=== PATIENT | female | born 1985 | race African-American/Black ===

== ENCOUNTER 2016-12-05 04:02 | Emergency (ER) | payer BC, MEDICAID ==
[~2016-12-05] VITALS: Ht 167.6 cm; Wt 72.6 kg
--- NOTE | 2016-12-05 06:00 | NUR ---
TO BED 8 A 31 YO FEMALE PT BIB SELF FROM HOME, PT STATES HER BRAIN HURTS AND HAVING ABD PAIN AND SAID, "SOMETHING IS EATING MY FACE" X3 WEEKS. PATIENT IS ALERT, RESPONSIVE, VSS, NAD NOTED. BREATHING EVEN AND UNLABORED. NONDIAPHORETIC. COMFORT MEASURES RENDERED. AWAITING FOR ER MD HENSON.
--- NOTE | 2016-12-05 06:25 | NUR ---
started a saline lock on the lac g18, blood drawn and sent to lab. Addendum: 12/05/16 at 0635 by BEVERLEY rac g18
[2016-12-05] MEDS ORDERED: IV NS 0.9% 1,000 ML BAG IV ONE (06:30)
[2016-12-05] MEDS ORDERED: ONDANSETRON HCL/PF 4 MG/2 ML VIAL IVP ONE (06:30)
[2016-12-05] MEDS ORDERED: ONDANSETRON HCL/PF 4 MG/2 ML VIAL ONE (06:31)
--- NOTE | 2016-12-05 06:35 | NUR ---
medicated patient as ordered by Dr Irvin.
[2016-12-05 06:41] LABS: BASOPHILS % (AUTO) 0.3 % (0.0-2.0); EOSINOPHILS # (AUTO) 0.4 /CMM (0.0-0.7); EOSINOPHILS % (AUTO) 2.8 % (0.0-6.0); HEMATOCRIT 42 % (33-45); HEMOGLOBIN 13.6 g/dL (11.5-14.8); LYMPHOCYTES # (AUTO) 4.6 /CMM (0.8-4.8); LYMPHOCYTES % (AUTO) 33.8 % (20.0-44.0); MEAN CORPUSCULAR HEMOGLOBIN 29 PG (26.0-33.0); MEAN CORPUSCULAR HGB CONC 32 g/dl (31.0-36.0); MEAN CORPUSCULAR VOLUME 88 fL (82-100); MONOCYTES # (AUTO) 0.6 /CMM (0.1-1.30); MONOCYTES % (AUTO) 4.6 % (2.0-12.0); NEUTROPHILS # (AUTO) 7.9 /CMM (1.8-8.9); NEUTROPHILS % (AUTO) 58.5 % (43.0-81.0); PLATELET COUNT (AUTO) 253 /CMM (150-450); RDW COEFFICIENT OF VARIATION 12.6 (11.5-15.0); RED BLOOD CELL COUNT(AUTO) 4.74 MIL/uL (4.0-5.2); WHITE BLOOD COUNT (AUTO) 13.5 K/uL (4.3-11.0)
[2016-12-05 06:49] LABS: CALCIUM, SERUM 8.9 mg/dL (8.5-10.1); CREATININE 0.7 mg/dL (0.6-1.3); POTASSIUM 3.6 mmol/L (3.5-5.1)
[2016-12-05 06:55] LABS: BILIRUBIN,DIRECT 0.1 mg/dL (0.0-0.2); BILIRUBIN,TOTAL 0.4 mg/dL (0.2-1.0); TOTAL PROTEIN, SERUM 7.6 g/dL (6.4-8.2)
[2016-12-05 07:13] LABS: APPEARANCE,URINE SL CLOUDY (CLEAR); BILIRUBIN,URINE NEGATIVE (NEGATIVE); BLOOD, URINE NEGATIVE Ery/uL (NEGATIVE); COLOR,URINE YELLOW (YELLOW); KETONES,URINE NEGATIVE (NEGATIVE); LEUKOCYTE ESTERASE ,URINE NEGATIVE (NEGATIVE); NITRITE, URINE NEGATIVE (NEGATIVE); PH,URINE 5.5 (5.0-8.0); PROTEIN,URINE NEGATIVE (NEGATIVE); UGLUCOSE NEGATIVE (NEGATIVE); UROBILINOGEN,URINE 0.2 EU/dL (0.2)
--- NOTE | 2016-12-05 07:41 | NUR ---
IV removed. Catheter intact and site benign. Pressure and 4x4 applied to site. No bleeding noted.PT. VERBALIZED UNDERSTANDING OF AFTERCARE INSTRUCTIONS.Patient discharged to home in stable condition. Written and verbal after care instructions given. Patient verbalizes understanding of instruction.
[2016-12-05 07:45] VITALS: BP 134/77
== END 2016-12-05 07:49 | disposition home or self-care (01) ==
LOC: ER 04:07
DX: R10.84 Generalized abdominal pain (principal); R51 Headache; F17.200 Nicotine dependence, unspecified, uncomplicated
CPT/HCPCS: 36415; 80048-TC; 80076-TC; 81000-TC; 83690-TC; 84703-TC; 85025-TC; A4606; J2405; J7030; Z7610

== ENCOUNTER 2017-03-23 21:42 | Emergency (ER) | payer BC ==
[~2017-03-23] VITALS: Ht 170.2 cm; Wt 72.6 kg
--- NOTE | 2017-03-23 23:39 | NUR ---
PT BIBSELF AMBULATORY TO ER BED 8 C/O "ABD PAIN X1 MONTH; SAW MD YESTERDAY AND ON FLAGYL" PT AOX3 RR EVEN AND UNLABORED. NO SOB NOTED. NAD NOTED. NO NVD AT THIS TIME. PT GOWNED AND PLACED ON MONITOR WAITING FOR MD HENSON.
--- NOTE | 2017-03-23 23:44 | NUR ---
LAB AT BEDSIDE FOR BLOOD DRAW
[2017-03-23 23:47] LABS: BASOPHILS # (AUTO) 0.3 /CMM (0.0-0.2); BASOPHILS % (AUTO) 2.6 % (0.0-2.0); EOSINOPHILS # (AUTO) 0.2 /CMM (0.0-0.7); EOSINOPHILS % (AUTO) 1.2 % (0.0-6.0); HEMATOCRIT 41 % (33-45); HEMOGLOBIN 14.3 g/dL (11.5-14.8); LYMPHOCYTES # (AUTO) 3.1 /CMM (0.8-4.8); LYMPHOCYTES % (AUTO) 23.8 % (20.0-44.0); MEAN CORPUSCULAR HEMOGLOBIN 30 PG (26.0-33.0); MEAN CORPUSCULAR HGB CONC 35 g/dl (31.0-36.0); MEAN CORPUSCULAR VOLUME 86 fL (82-100); MONOCYTES # (AUTO) 0.5 /CMM (0.1-1.30); MONOCYTES % (AUTO) 3.5 % (2.0-12.0); NEUTROPHILS # (AUTO) 8.8 /CMM (1.8-8.9); NEUTROPHILS % (AUTO) 68.9 % (43.0-81.0); PLATELET COUNT (AUTO) 248 /CMM (150-450); RDW COEFFICIENT OF VARIATION 11.9 (11.5-15.0); RED BLOOD CELL COUNT(AUTO) 4.81 MIL/uL (4.0-5.2); WHITE BLOOD COUNT (AUTO) 12.9 K/uL (4.3-11.0)
--- NOTE | 2017-03-24 00:04 | NUR ---
URINE COLLECTED. CALLED LAB FOR WELCOME CENTER AGENT.
[2017-03-24 00:15] LABS: CALCIUM, SERUM 9.1 mg/dL (8.5-10.1); CREATININE 0.8 mg/dL (0.6-1.3); POTASSIUM 3.8 mmol/L (3.5-5.1)
[2017-03-24 00:21] LABS: BILIRUBIN,DIRECT 0.1 mg/dL (0.0-0.2); BILIRUBIN,TOTAL 0.4 mg/dL (0.2-1.0); TOTAL PROTEIN, SERUM 7.7 g/dL (6.4-8.2)
[2017-03-24 00:25] LABS: APPEARANCE,URINE SL CLOUDY (CLEAR); BILIRUBIN,URINE NEGATIVE (NEGATIVE); BLOOD, URINE 3+ Ery/uL (NEGATIVE); COLOR,URINE YELLOW (YELLOW); KETONES,URINE NEGATIVE (NEGATIVE); LEUKOCYTE ESTERASE ,URINE NEGATIVE (NEGATIVE); NITRITE, URINE NEGATIVE (NEGATIVE); PH,URINE 5.5 (5.0-8.0); PROTEIN,URINE TRACE mg/dl (NEGATIVE); UGLUCOSE NEGATIVE (NEGATIVE); UROBILINOGEN,URINE 0.2 EU/dL (0.2)
[2017-03-24 00:30] LABS: RBC,URINE 81-100 /HPF (0-2)
[2017-03-24 00:31] LABS: BACTERIA,URINE Few /HPF (None Seen); SQUAMOUS EPITHELIAL CELL,UR Moderate /HPF (None Seen); WBC,URINE 0-2 /HPF (0-3)
--- NOTE | 2017-03-24 00:33 | NUR ---
Art, CLEANER OPERATOR at bedside for psych eval.
--- NOTE | 2017-03-24 00:48 | NUR ---
Dr. Martin at bedside for update on pt status w/ discharge instructions. pt ambulatory w/ steady gait, resp even & unlabored, nad noted. Patient discharged to home in stable condition. Written and verbal after care instructions given. Patient verbalizes understanding of instruction.
[2017-03-24 00:53] VITALS: BP 118/76
== END 2017-03-24 00:52 | disposition home or self-care (01) ==
LOC: ER 21:47
DX: R10.9 Unspecified abdominal pain (principal)
CPT/HCPCS: 36415; 80048-TC; 80076-TC; 81000-TC; 83690-TC; 84703-TC; 85025-TC; A4606; Z7610

== ENCOUNTER 2017-09-30 20:52 | Emergency (ER) | payer BC ==
[~2017-09-30] VITALS: Ht 167.6 cm; Wt 68.0 kg
[2017-09-30 21:10] VITALS: BP 100/64
[2017-09-30 21:24] LABS: APPEARANCE,URINE Clear (CLEAR); BILIRUBIN,URINE Negative (NEGATIVE); BLOOD, URINE Negative Ery/uL (NEGATIVE); COLOR,URINE Yellow (YELLOW); KETONES,URINE Negative (NEGATIVE); LEUKOCYTE ESTERASE ,URINE Negative (NEGATIVE); NITRITE, URINE Negative (NEGATIVE); PH,URINE 5.5 (5.0-8.0); PROTEIN,URINE Negative (NEGATIVE); UGLUCOSE Negative (NEGATIVE); UROBILINOGEN,URINE 0.2 EU/dL (0.2)
--- NOTE | 2017-09-30 21:33 | NUR ---
PATIENT AMBULATED TO ER BED WITH STEADY GAIT
== END 2017-09-30 22:45 | disposition home or self-care (01) ==
LOC: ER 20:53
DX: O26.899 Other specified pregnancy related conditions, unspecified trimester (principal); R30.0 Dysuria; F10.10 Alcohol abuse, uncomplicated; F17.200 Nicotine dependence, unspecified, uncomplicated; Y90.9 Presence of alcohol in blood, level not specified; Z3A.00 Weeks of gestation of pregnancy not specified
CPT/HCPCS: 81001; 84703; 99284; A4606; Z7610; 81000-TC

== ENCOUNTER 2017-10-05 18:00 | Emergency (ER) | payer BC ==
[~2017-10-05] VITALS: Ht 167.6 cm; Wt 68.0 kg
--- NOTE | 2017-10-05 18:00 | NUR ---
PT BIBRA FROM HOME TO ER BED . C/O DIFFUSE ABDOMINAL PAIN W/ NAUSEA X 3 DAYS. PT STATES TOOK A TEST THIS WEEK AND THINK SHE IS HAVING A MISCARRIAGE. PT DENIES BLEEDING AND DISCHARGE. GOWNED AND PLACED ON MONITOR. AWAITING MD HENSON.
--- NOTE | 2017-10-05 18:23 | NUR ---
DR MUJICA AT BEDSIDE FOR EVAL.
[2017-10-05] MEDS ORDERED: IV NS 0.9% 1,000 ML BAG IV ONE (18:30)
[2017-10-05 18:56] LABS: BASOPHILS # (AUTO) 0.5 /CMM (0.0-0.2); BASOPHILS % (AUTO) 3.5 % (0.0-2.0); EOSINOPHILS % (AUTO) 1.8 % (0.0-6.0); HEMATOCRIT 37 % (33-45); HEMOGLOBIN 13.3 g/dL (11.5-14.8); LYMPHOCYTES # (AUTO) 2.5 /CMM (0.8-4.8); LYMPHOCYTES % (AUTO) 19.2 % (20.0-44.0); MEAN CORPUSCULAR HEMOGLOBIN 31 PG (26.0-33.0); MEAN CORPUSCULAR HGB CONC 36 g/dl (31.0-36.0); MEAN CORPUSCULAR VOLUME 87 fL (82-100); MONOCYTES # (AUTO) 0.6 /CMM (0.1-1.30); MONOCYTES % (AUTO) 4.8 % (2.0-12.0); NEUTROPHILS # (AUTO) 9.1 /CMM (1.8-8.9); NEUTROPHILS % (AUTO) 70.7 % (43.0-81.0); PLATELET COUNT (AUTO) 217 /CMM (150-450); RED BLOOD CELL COUNT(AUTO) 4.31 MIL/uL (4.0-5.2); WHITE BLOOD COUNT (AUTO) 12.9 K/uL (4.3-11.0)
[2017-10-05 19:29] LABS: APPEARANCE,URINE Clear (CLEAR); BILIRUBIN,URINE SMALL (NEGATIVE); BLOOD, URINE Negative Ery/uL (NEGATIVE); COLOR,URINE Yellow (YELLOW); KETONES,URINE Negative (NEGATIVE); LEUKOCYTE ESTERASE ,URINE Trace (NEGATIVE); NITRITE, URINE Negative (NEGATIVE); PH,URINE 5.5 (5.0-8.0); PROTEIN,URINE Negative (NEGATIVE); UGLUCOSE Negative (NEGATIVE); UROBILINOGEN,URINE 0.2 EU/dL (0.2)
[2017-10-05 19:45] LABS: BACTERIA,URINE Rare /HPF (None Seen); MUCUS,URINE Few /LPF (None Seen); RBC,URINE 0-2 /HPF (0-2); SQUAMOUS EPITHELIAL CELL,UR Many /HPF (None Seen); URINE AMORPHOUS URATE Few /HPF (None Seen); WBC,URINE 2-3/HPF /HPF (0-3)
[2017-10-05 19:47] LABS: CREATININE 0.7 mg/dL (0.6-1.3); POTASSIUM 3.3 mmol/L (3.5-5.1)
[2017-10-05] MEDS ORDERED: POTASSIUM CHLORIDE 20 MEQ TAB.PRT.SR PO ONE ×2 (20:30→20:40)
--- NOTE | 2017-10-05 20:52 | NUR ---
Patient discharged to home in stable condition. Written and verbal after care instructions given. Patient verbalizes understanding of instruction.IV removed. Catheter intact and site benign. Pressure and 4x4 applied to site. No bleeding noted.
[2017-10-05 20:53] VITALS: BP 102/62
== END 2017-10-05 20:59 | disposition home or self-care (01) ==
LOC: ER 18:00
DX: O99.281 Endocrine, nutritional and metabolic diseases complicating pregnancy, first trimester (principal); F10.10 Alcohol abuse, uncomplicated; F17.200 Nicotine dependence, unspecified, uncomplicated; E87.6 Hypokalemia; E86.0 Dehydration; Y90.9 Presence of alcohol in blood, level not specified; Z3A.01 Less than 8 weeks gestation of pregnancy
CPT/HCPCS: 36415; 76856-TC; 80048-TC; 81000-TC; 84702-TC; 85025-TC; 86850-TC; A4606; J7030; Z7610

== ENCOUNTER 2017-12-30 17:45 | Emergency (ER) ==
[~2017-12-30] VITALS: Ht 167.6 cm; Wt 72.6 kg
--- NOTE | 2017-12-30 18:30 | NUR ---
PT PRESENTS TO ER C/O "LIVER PAIN" AND ABD DISTENSION WORSEINNG OVER LAST FEW MONTHS. PT DOES NOT MAKE SENSE BUT IS COOPERATIVE WITH STAFF INSTRUCTION. RESP EVEN UNLABORED. SKIN WARM DRY. NAD NOTED. IN ER BED 12.
--- NOTE | 2017-12-30 19:26 | NUR ---
REPORT RECEIVED FROM CORI SWEENEY FOR DESMOND.
[2017-12-30 19:37] LABS: BASOPHILS # (AUTO) 0.3 /CMM (0.0-0.2); BASOPHILS % (AUTO) 2.2 % (0.0-2.0); EOSINOPHILS % (AUTO) 0.8 % (0.0-6.0); HEMATOCRIT 44 % (33-45); HEMOGLOBIN 14.5 g/dL (11.5-14.8); LYMPHOCYTES # (AUTO) 2.4 /CMM (0.8-4.8); LYMPHOCYTES % (AUTO) 19.1 % (20.0-44.0); MEAN CORPUSCULAR HGB CONC 33 g/dl (31.0-36.0); MEAN CORPUSCULAR VOLUME 88 fL (82-100); MONOCYTES # (AUTO) 0.5 /CMM (0.1-1.30); MONOCYTES % (AUTO) 4.3 % (2.0-12.0); NEUTROPHILS # (AUTO) 9.3 /CMM (1.8-8.9); NEUTROPHILS % (AUTO) 73.6 % (43.0-81.0); PLATELET COUNT (AUTO) 306 /CMM (150-450); WHITE BLOOD COUNT (AUTO) 12.6 K/uL (4.3-11.0)
[2017-12-30 19:52] LABS: CALCIUM, SERUM 9.5 mg/dL (8.5-10.1); CREATININE 0.7 mg/dL (0.6-1.3); POTASSIUM 3.7 mmol/L (3.5-5.1)
[2017-12-30 19:58] LABS: ALBUMIN 4.1 g/dL (3.4-5.0); BILIRUBIN,DIRECT 0.2 mg/dL (0.0-0.2); BILIRUBIN,TOTAL 0.8 mg/dL (0.2-1.0); TOTAL PROTEIN, SERUM 8.1 g/dL (6.4-8.2)
--- NOTE | 2017-12-30 20:49 | NUR ---
Patient discharged to home in stable condition. Written and verbal after care instructions given. Patient verbalizes understanding of instruction. Patient ambulatory with a steady gait.
[2017-12-30 20:50] VITALS: BP 137/86
== END 2017-12-30 20:50 | disposition home or self-care (01) ==
LOC: ER 17:50
DX: R10.84 Generalized abdominal pain (principal); F17.200 Nicotine dependence, unspecified, uncomplicated
CPT/HCPCS: 36415; 80048-TC; 80076-TC; 83690-TC; 84702-TC; 85025-TC; A4606; Z7610

== ENCOUNTER 2018-07-13 11:09 | Emergency (ER) | payer BC ==
[~2018-07-13] VITALS: Ht 162.6 cm; Wt 65.8 kg
[2018-07-13 11:26] VITALS: BP 110/72
--- NOTE | 2018-07-13 11:46 | NUR ---
URINE SPECIMEN COLLECTED AND SENT TO LAB.
[2018-07-13 11:52] LABS: APPEARANCE,URINE Clear (CLEAR); BILIRUBIN,URINE Negative (NEGATIVE); BLOOD, URINE Moderate Ery/uL (NEGATIVE); COLOR,URINE Yellow (YELLOW); KETONES,URINE Negative (NEGATIVE); LEUKOCYTE ESTERASE ,URINE Negative (NEGATIVE); NITRITE, URINE Negative (NEGATIVE); PH,URINE 6.5 (5.0-8.0); PROTEIN,URINE Negative (NEGATIVE); UGLUCOSE Negative (NEGATIVE); UROBILINOGEN,URINE 0.2 EU/dL (0.2)
[2018-07-13 12:02] LABS: WBC,URINE 0-2 /HPF (0-3)
[2018-07-13 12:03] LABS: BACTERIA,URINE None seen /HPF (None Seen); SQUAMOUS EPITHELIAL CELL,UR Few /HPF (None Seen)
--- NOTE | 2018-07-13 12:28 | NUR ---
ER PHLEB AT BEDSIDE FOR BLOOD DRAW.
[2018-07-13 12:36] LABS: BASOPHILS # (AUTO) 0.1 /CMM (0.0-0.2); BASOPHILS % (AUTO) 0.8 % (0.0-2.0); HEMATOCRIT 41 % (33-45); HEMOGLOBIN 13.8 g/dL (11.5-14.8); LYMPHOCYTES # (AUTO) 2.8 /CMM (0.8-4.8); LYMPHOCYTES % (AUTO) 25.4 % (20.0-44.0); MEAN CORPUSCULAR HGB CONC 34 g/dl (31.0-36.0); MEAN CORPUSCULAR VOLUME 88 fL (82-100); MONOCYTES # (AUTO) 0.6 /CMM (0.1-1.30); MONOCYTES % (AUTO) 5.3 % (2.0-12.0); NEUTROPHILS # (AUTO) 7.3 /CMM (1.8-8.9); NEUTROPHILS % (AUTO) 65.5 % (43.0-81.0); PLATELET COUNT (AUTO) 226 /CMM (150-450); RED BLOOD CELL COUNT(AUTO) 4.65 MIL/uL (4.0-5.2); WHITE BLOOD COUNT (AUTO) 11.1 K/uL (4.3-11.0)
[2018-07-13 12:43] LABS: CALCIUM, SERUM 8.5 mg/dL (8.5-10.1); CARBON DIOXIDE 27 mmol/L (21-32); CHLORIDE 105 mmol/L (98-107); CREATININE 0.9 mg/dL (0.6-1.3); GLUCOSE 93 mg/dL (74-106); POTASSIUM 4.4 mmol/L (3.5-5.1); SODIUM SERUM 139 mmol/L (136-145); UREA NITROGEN, BLOOD 12 mg/dL (7-18)
--- NOTE | 2018-07-13 13:39 | NUR ---
Patient discharged to home in stable condition. Written and verbal after care instructions given. Patient verbalizes understanding of instruction.
== END 2018-07-13 13:41 | disposition home or self-care (01) ==
LOC: ER 11:13
DX: N92.0 Excessive and frequent menstruation with regular cycle (principal); F10.10 Alcohol abuse, uncomplicated; F17.200 Nicotine dependence, unspecified, uncomplicated; Y90.9 Presence of alcohol in blood, level not specified; Z60.2 Problems related to living alone
CPT/HCPCS: 36415; 71045-TC; 80048-TC; 81000-TC; 84702-TC; 84703-TC; 85025-TC

== ENCOUNTER → 2018-09-12 | Emergency (ER) | payer BC ==
--- NOTE | 2018-09-12 21:00 | NUR ---
PER DR. EDWARDS PT IS ABLE TO WAIT IN WAITING ROOM UNTIL BED AVAILABLE.
--- NOTE | 2018-09-12 21:45 | NUR ---
NAME CALLED IN WAITING AREA. NO RESPONSE.
--- NOTE | 2018-09-12 21:51 | NUR ---
PT NAME CALLED IN WAITING AREA. NO RESPONSE.
--- NOTE | 2018-09-12 21:59 | NUR ---
PT NAME CALLED IN WAITING AREA. NO RESPONSE.
--- NOTE | 2018-09-12 22:11 | NUR ---
PT LEFT BEING TRIAGED.
== END | disposition left against medical advice (07) ==
LOC: ER 20:00
DX: Z53.21 Procedure and treatment not carried out due to patient leaving prior to being seen by health care provider (principal)

== ENCOUNTER 2018-09-30 18:50 | Emergency (ER) | payer BC ==
[~2018-09-30] VITALS: Ht 167.6 cm; Wt 87.1 kg
--- NOTE | 2018-09-30 19:03 | NUR ---
SPOTTING X TODAY, ON YEARLY CONTROL SHOT. WENT THROUGH 6 PADS OVER LAST 2 DAYS. SOME ABDOMINAL CRAMPING. PLACED IN GOWN AND MADE COMFORTABLE. URINE SENT TO STAT LAB. READY FOR EVAL.
[2018-09-30 19:16] LABS: BASOPHILS # (AUTO) 0.1 /CMM (0.0-0.2); BASOPHILS % (AUTO) 0.7 % (0.0-2.0); EOSINOPHILS % (AUTO) 2.3 % (0.0-6.0); HEMATOCRIT 40 % (33-45); HEMOGLOBIN 13.4 g/dL (11.5-14.8); LYMPHOCYTES # (AUTO) 2.9 /CMM (0.8-4.8); LYMPHOCYTES % (AUTO) 24.1 % (20.0-44.0); MEAN CORPUSCULAR HGB CONC 33 g/dl (31.0-36.0); MEAN CORPUSCULAR VOLUME 90 fL (82-100); MONOCYTES # (AUTO) 0.5 /CMM (0.1-1.30); NEUTROPHILS # (AUTO) 8.2 /CMM (1.8-8.9); NEUTROPHILS % (AUTO) 68.9 % (43.0-81.0); PLATELET COUNT (AUTO) 254 /CMM (150-450); WHITE BLOOD COUNT (AUTO) 11.9 K/uL (4.3-11.0)
[2018-09-30 19:33] LABS: APPEARANCE,URINE Slightly Cloudy (CLEAR); BILIRUBIN,URINE SMALL (NEGATIVE); BLOOD, URINE Moderate Ery/uL (NEGATIVE); COLOR,URINE Dark (YELLOW); KETONES,URINE Trace (NEGATIVE); LEUKOCYTE ESTERASE ,URINE Trace (NEGATIVE); NITRITE, URINE Negative (NEGATIVE); PH,URINE 5.5 (5.0-8.0); PROTEIN,URINE Negative (NEGATIVE); UGLUCOSE Negative (NEGATIVE); UROBILINOGEN,URINE 0.2 EU/dL (0.2)
[2018-09-30 19:42] LABS: BACTERIA,URINE Many /HPF (None Seen); SQUAMOUS EPITHELIAL CELL,UR Many /HPF (None Seen)
--- NOTE | 2018-09-30 19:47 | NUR ---
US TECH AT BEDSIDE
[2018-09-30 21:36] VITALS: BP 116/72
--- NOTE | 2018-09-30 21:36 | NUR ---
Patient discharged to home in stable condition. Written and verbal after care instructions given. Patient verbalizes understanding of instruction.
== END 2018-09-30 21:36 | disposition home or self-care (01) ==
LOC: ER 18:57
DX: N39.0 Urinary tract infection, site not specified (principal); N93.8 Other specified abnormal uterine and vaginal bleeding; F17.200 Nicotine dependence, unspecified, uncomplicated; Z60.2 Problems related to living alone
CPT/HCPCS: 36415; 76856-TC; 81000-TC; 84703-TC; 85025-TC; 87086-TC

== ENCOUNTER 2018-12-23 03:01 | Emergency (ER) | payer BC ==
[~2018-12-23] VITALS: Ht 167.6 cm; Wt 88.9 kg
--- NOTE | 2018-12-23 03:12 | NUR ---
PT BIBRA FROM HOME. PER RA,PT INGESTED ABOUT 30 PILLS OF PAROXETINE. PT STATED SHE IS FEELING SUICIDAL. DENIES HI, ABDOMINAL PAIN, HEADACHE, SOB, N/V. PT ARRIVED TO ED DROWSEY, AAOX4, RR EVEN AND UNLABORED. SKIN WARM AND INTACT, VSS, NO ACUTE DISTRESS AT THIS TIME, SUICIDE PRECAUTIONS INITIATED, PLACED ON MONITOR, WILL CONTINUE TO MONITOR, FAMILY AT BEDSIDE.
--- NOTE | 2018-12-23 03:22 | NUR ---
PHEBOTOMIST AT BEDSIDE FOR BLOOD DRAW
[2018-12-23] MEDS ORDERED: ONDANSETRON HCL/PF 4 MG/2 ML VIAL IV ONE (03:30)
[2018-12-23] MEDS ORDERED: ONDANSETRON 4 MG TAB.RAPDIS SL ONE (03:30)
--- NOTE | 2018-12-23 03:30 | NUR ---
[employer] AT BEDSIDE
--- NOTE | 2018-12-23 03:30 | NUR ---
URINE COLLECTED AND SENT TO LAB
[2018-12-23] MEDS ORDERED: ONDANSETRON HCL/PF 4 MG/2 ML VIAL ONE (03:31)
[2018-12-23 03:33] LABS: CARBON DIOXIDE 25 mmol/L (21-32); CHLORIDE 102 mmol/L (98-107); CREATININE 0.8 mg/dL (0.6-1.3); GLUCOSE 101 mg/dL (74-106); POTASSIUM 3.6 mmol/L (3.5-5.1); SODIUM SERUM 137 mmol/L (136-145); UREA NITROGEN, BLOOD 13 mg/dL (7-18)
[2018-12-23 03:39] LABS: ALANINE AMINOTRANSFERASE 29 U/L (12-78); ALBUMIN 3.6 g/dL (3.4-5.0); ALKALINE PHOSPHATASE 93 U/L (46-116); ASPARTATE AMINOTRANSFERASE 18 U/L (15-37); BILIRUBIN,DIRECT 0.1 mg/dL (0.0-0.2); BILIRUBIN,TOTAL 0.3 mg/dL (0.2-1.0); TOTAL PROTEIN, SERUM 7.4 g/dL (6.4-8.2)
[2018-12-23 03:41] LABS: BASOPHILS # (AUTO) 0.1 /CMM (0.0-0.2); BASOPHILS % (AUTO) 0.9 % (0.0-2.0); EOSINOPHILS % (AUTO) 1.9 % (0.0-6.0); HEMATOCRIT 42 % (33-45); LYMPHOCYTES % (AUTO) 26.6 % (20.0-44.0); MEAN CORPUSCULAR HGB CONC 34 g/dl (31.0-36.0); MEAN CORPUSCULAR VOLUME 89 fL (82-100); MONOCYTES # (AUTO) 0.8 /CMM (0.1-1.30); MONOCYTES % (AUTO) 5.4 % (2.0-12.0); NEUTROPHILS # (AUTO) 9.7 /CMM (1.8-8.9); NEUTROPHILS % (AUTO) 65.2 % (43.0-81.0); PLATELET COUNT (AUTO) 272 /CMM (150-450); RED BLOOD CELL COUNT(AUTO) 4.71 MIL/uL (4.0-5.2); WHITE BLOOD COUNT (AUTO) 14.9 K/uL (4.3-11.0)
[2018-12-23 03:43] LABS: ALCOHOL, BLOOD < 3 mg/dL (0-0); SALICYLATE 1.6 mg/dL (2.8-20.0)
[2018-12-23 03:49] LABS: APPEARANCE,URINE Clear (CLEAR); BILIRUBIN,URINE Negative (NEGATIVE); BLOOD, URINE Trace-lysed Ery/uL (NEGATIVE); COLOR,URINE Yellow (YELLOW); KETONES,URINE Negative (NEGATIVE); LEUKOCYTE ESTERASE ,URINE Negative (NEGATIVE); NITRITE, URINE Negative (NEGATIVE); PH,URINE 5.5 (5.0-8.0); PROTEIN,URINE Negative (NEGATIVE); UGLUCOSE Negative (NEGATIVE); UROBILINOGEN,URINE 0.2 EU/dL (0.2)
[2018-12-23 05:02] LABS: BACTERIA,URINE None seen /HPF (None Seen); SQUAMOUS EPITHELIAL CELL,UR Moderate /HPF (None Seen)
--- NOTE | 2018-12-23 08:20 | NUR ---
PT RESTING IN RBROSELEY ALERT CALM RESPIRATIONS EVEN VITAL SIHNS TAKEN STABLE. PT ON CARBON SETTER HR 80 WILL CONTINUE TO MONITOR.
--- NOTE | 2018-12-23 08:23 | NUR ---
PLAN OF CARE PSYCH-EVALUATION
--- NOTE | 2018-12-23 11:32 | NUR ---
FOLLOWED UP WITH [facility]. SPOKE TO ELIZABETH. HE RECEIVED THE FAX AND PUSHED IT THROUGH TO [place] TO SEE WHO WILL HAVE D/C FIRST IN ORDER TO GIVE THE PT A BED.
--- NOTE | 2018-12-23 11:40 | NUR ---
PT SEEN BY THI FERNNADEZ PLACED ON VOLUNTARY HOLD
--- NOTE | 2018-12-23 12:10 | NUR ---
CALLED IMPORT/EXPORT SPECIALIST TO SPEAK TO THE PT. SPEAKING VIA CELL PHONE
--- NOTE | 2018-12-23 12:46 | NUR ---
FAMILY AT BEDSIDE WITH PT PT PER MD VERDUGO IS ON ER HOLD. CT SCAN ORDEREED FAMILY MADE AWARE OF PLAN OF CARE
--- NOTE | 2018-12-23 13:13 | NUR ---
BIANCA LEW [phone] SISTER
--- NOTE | 2018-12-23 13:50 | NUR ---
CALLED THERAPY MANAGER HUMAN RESOURCES FILE CLERK TO RETURN TO PLACE PT ON A HOLD
--- NOTE | 2018-12-23 14:53 | NUR ---
MOTHER CALLED; ASKING DAUGTHER TO CALL HER; [phone]
--- NOTE | 2018-12-23 14:58 | NUR ---
[facility] ACCEPTED. DR HONG ADMITTING PSYCHIATRIST. CALL [phone] EX [phone] TO GIVE REPORT
--- NOTE | 2018-12-23 14:59 | NUR ---
CALLED [facility] FOR S TRANSPORT. ETA [phone] TRIP# [id number]
--- NOTE | 2018-12-23 15:16 | NUR ---
REPORT GIVEN TO ARI FROM [facility] TO [facility] PT ADMITED UNDER POULUN ETA [phone]
--- NOTE | 2018-12-23 15:56 | NUR ---
AMBULANZ RIG #[id number] T LEAVING FOR [facility] ER PIV REMOVED PT DRESSED IN STREET CLOTHES
[2018-12-23 15:58] VITALS: BP 127/59
== END 2018-12-23 15:59 | disposition short-term general hospital (02) ==
LOC: ER 03:02
DX: R45.851 Suicidal ideations (principal); T43.222A Poisoning by selective serotonin reuptake inhibitors, intentional self-harm, initial encounter; F17.200 Nicotine dependence, unspecified, uncomplicated; R94.31 Abnormal electrocardiogram [ECG] [EKG]; R51 Headache; Z60.2 Problems related to living alone; Y92.098 Other place in other non-institutional residence as the place of occurrence of the external cause
CPT/HCPCS: 36415; 70450; 80048; 80076; 80305; 80307; 80329; 81001; 82962; 83735; 84703; 85025; 93005 ×3; 96374; 99285; G0480; J2405; 81000-TC

== ENCOUNTER 2019-04-13 08:52 | Emergency (ER) | payer BC ==
[~2019-04-13] VITALS: Ht 167.6 cm; Wt 88.5 kg
--- NOTE | 2019-04-13 08:55 | NUR ---
BIBRA 78 FROM HOME, C/O VAGINAL BLEEDING AND ABDOMINAL CRAMPING SINCE YESTERDAY. FOUND OUT SHE WAS LAST WEEK. LMP 02/20/19, A4, TO ER BED 16, HOOKED TO MONITOR, CHANGED TO HOSP GOWN, WARM BLANKET PROVIDED, PATIENT AOX4 , BREATHING EVEN AND UNLABORED, NAD NOTED. AWAITING MD HENSON.
--- NOTE | 2019-04-13 08:59 | NUR ---
DR IBARRA AT BEDSIDE
[2019-04-13] MEDS ORDERED: IV NS 0.9% 1,000 ML BAG IV ONE (09:30)
[2019-04-13 09:43] LABS: APPEARANCE,URINE Clear (CLEAR); BILIRUBIN,URINE Negative (NEGATIVE); BLOOD, URINE Moderate Ery/uL (NEGATIVE); COLOR,URINE Yellow (YELLOW); KETONES,URINE Negative (NEGATIVE); LEUKOCYTE ESTERASE ,URINE Negative (NEGATIVE); NITRITE, URINE Negative (NEGATIVE); PH,URINE 5.5 (5.0-8.0); PROTEIN,URINE Negative (NEGATIVE); UGLUCOSE Negative (NEGATIVE); UROBILINOGEN,URINE 0.2 EU/dL (0.2)
[2019-04-13 09:44] LABS: BACTERIA,URINE None seen /HPF (None Seen); SQUAMOUS EPITHELIAL CELL,UR Few /HPF (None Seen); WBC,URINE 0-2 /HPF (0-3)
--- NOTE | 2019-04-13 09:44 | NUR ---
US TECH AT BEDSIDE
[2019-04-13 09:51] LABS: BASOPHILS # (AUTO) 0.1 /CMM (0.0-0.2); BASOPHILS % (AUTO) 1.1 % (0.0-2.0); EOSINOPHILS % (AUTO) 2.5 % (0.0-6.0); HEMATOCRIT 38 % (33-45); HEMOGLOBIN 12.8 g/dL (11.5-14.8); LYMPHOCYTES # (AUTO) 2.9 /CMM (0.8-4.8); LYMPHOCYTES % (AUTO) 26.3 % (20.0-44.0); MEAN CORPUSCULAR HGB CONC 34 g/dl (31.0-36.0); MEAN CORPUSCULAR VOLUME 88 fL (82-100); MONOCYTES # (AUTO) 0.5 /CMM (0.1-1.30); MONOCYTES % (AUTO) 4.7 % (2.0-12.0); NEUTROPHILS # (AUTO) 7.1 /CMM (1.8-8.9); NEUTROPHILS % (AUTO) 65.4 % (43.0-81.0); PLATELET COUNT (AUTO) 218 /CMM (150-450); RED BLOOD CELL COUNT(AUTO) 4.32 MIL/uL (4.0-5.2); WHITE BLOOD COUNT (AUTO) 10.9 K/uL (4.3-11.0)
[2019-04-13 09:56] LABS: CALCIUM, SERUM 8.8 mg/dL (8.5-10.1); CREATININE 0.7 mg/dL (0.6-1.3)
--- NOTE | 2019-04-13 10:50 | NUR ---
PER LAB, NO NEED FOR RHOGAM, PATIENT IS A+, MADE MD AWARE
--- NOTE | 2019-04-13 10:50 | NUR ---
CHAPERONED DR IBARRA DURING PELVIC EXAM
[2019-04-13 11:39] VITALS: BP 107/71
--- NOTE | 2019-04-13 11:39 | NUR ---
IV removed. Catheter intact and site benign. Pressure and 4x4 applied to site. No bleeding noted.Patient discharged to home in stable condition. Written and verbal after care instructions given. Patient verbalizes understanding of instruction.
== END 2019-04-13 11:40 | disposition home or self-care (01) ==
LOC: ER 08:58
DX: O20.0 Threatened abortion (principal); J45.909 Unspecified asthma, uncomplicated; F17.200 Nicotine dependence, unspecified, uncomplicated; Z60.2 Problems related to living alone; Z3A.01 Less than 8 weeks gestation of pregnancy
CPT/HCPCS: 36415; 76856; 80048; 81001; 84702; 84703; 85025; 85240; 86850; 99284; J7030; 81000-TC

== ENCOUNTER 2020-08-20 01:13 | Emergency (ER) | payer BC ==
[~2020-08-20] VITALS: Ht 167.6 cm; Wt 85.3 kg
[2020-08-20 01:20] VITALS: BP 111/67
== END 2020-08-20 06:19 | disposition home or self-care (01) ==
LOC: ER 01:13
DX: Z02.89 Encounter for other administrative examinations (principal); R94.31 Abnormal electrocardiogram [ECG] [EKG]; J45.909 Unspecified asthma, uncomplicated; F20.9 Schizophrenia, unspecified; F10.10 Alcohol abuse, uncomplicated; F17.200 Nicotine dependence, unspecified, uncomplicated; Y90.9 Presence of alcohol in blood, level not specified; Z60.2 Problems related to living alone

== ENCOUNTER 2021-02-26 17:12 | Emergency (ER) | payer BC ==
[~2021-02-26] VITALS: Ht 167.6 cm; Wt 95.3 kg
--- NOTE | 2021-02-26 17:45 | NUR ---
The patient is bibra83 frm home c/o cough/sob, weakness and body ache x 1 week. hx asthma taking inhaler w no relief. The patient`s oxygen saturation in room air is at 96%. Respiration regular and unlabored. Will continue to monitor the patient.
--- NOTE | 2021-02-26 18:21 | NUR ---
DR PALMER AT BEDSIDE
[2021-02-26] MEDS: ALBUTEROL FS 2.5 MG/3 ML VIAL.NEB NEB ONE (18:30)
[2021-02-26] MEDS ORDERED: predniSONE 20 MG TABLET ONE (18:35)
[2021-02-26] MEDS: predniSONE 20 MG TABLET PO ONE (18:36)
[2021-02-26] MEDS: IPRATROPIUM NEB FS 0.5 MG/2.5 ML AMPUL.NEB NEB ONE (18:40)
--- NOTE | 2021-02-26 18:49 | NUR ---
BLOOD SPECIMEN COLLECTED AND SENT TO THE LAB
--- NOTE | 2021-02-26 18:52 | NUR ---
URINE COLLECTED AND SENT
[2021-02-26] MEDS ORDERED: ALBUTEROL FS 2.5 MG/3 ML VIAL.NEB ONE (19:06)
--- NOTE | 2021-02-26 19:25 | NUR ---
REPORT GIVEN TO BIANCA FOR DESMOND
[2021-02-26 19:48] LABS: ALBUMIN 3.6 g/dL (3.4-5.0); BILIRUBIN,DIRECT 0.1 mg/dL (0.0-0.2); BILIRUBIN,TOTAL 0.2 mg/dL (0.2-1.0); CALCIUM, SERUM 8.6 mg/dL (8.5-10.1); CREATININE 0.9 mg/dL (0.6-1.3); TOTAL PROTEIN, SERUM 8.2 g/dL (6.4-8.2)
[2021-02-26 20:04] LABS: BILIRUBIN,URINE NEGATIVE (NEGATIVE); COLOR,URINE YELLOW (YELLOW); LEUKOCYTE ESTERASE ,URINE NEGATIVE (NEGATIVE); NITRITE, URINE NEGATIVE (NEGATIVE); PH,URINE 5.5 (5.0-8.0); PROTEIN,URINE TRACE mg/dl (NEGATIVE); UGLUCOSE NEGATIVE (NEGATIVE)
[2021-02-26 20:18] LABS: BACTERIA,URINE 1+ /HPF (None Seen); CALCIUM OXALATE CRYSTALS,UR Few /HPF (None Seen); SQUAMOUS EPITHELIAL CELL,UR Few /HPF (None Seen)
[2021-02-26 20:21] LABS: BASOPHILS # (AUTO) 0.1 K/uL (0.0-0.2); BASOPHILS % (AUTO) 0.6 % (0.0-2.0); EOSINOPHILS % (AUTO) 4.2 % (0.0-6.0); HEMATOCRIT 44 % (33-45); HEMOGLOBIN 14.3 g/dL (11.5-14.8); LYMPHOCYTES % (AUTO) 27.7 % (20.0-44.0); MEAN CORPUSCULAR HGB CONC 33 g/dl (31.0-36.0); MEAN CORPUSCULAR VOLUME 92 fL (82-100); MONOCYTES # (AUTO) 0.8 K/uL (0.1-1.30); MONOCYTES % (AUTO) 4.3 % (2.0-12.0); NEUTROPHILS # (AUTO) 11.5 K/uL (1.8-8.9); NEUTROPHILS % (AUTO) 63.2 % (43.0-81.0); PLATELET COUNT (AUTO) 348 K/uL (150-450); RED BLOOD CELL COUNT(AUTO) 4.81 MIL/uL (4.0-5.2); WHITE BLOOD COUNT (AUTO) 18.2 K/uL (4.3-11.0)
[2021-02-26] MEDS ORDERED: SULF1TAB48 PO (20:32)
[2021-02-26] MEDS ORDERED: ONDA4TAB11 PO (20:32)
--- NOTE | 2021-02-26 20:40 | NUR ---
Patient discharged to home in stable condition. Written and verbal after care instructions given. Patient verbalizes understanding of instruction. Pt ambulatory with a steady gait
[2021-02-26 20:41] VITALS: BP 130/75
== END 2021-02-26 20:41 | disposition home or self-care (01) ==
LOC: ER 18:30
DX: N12 Tubulo-interstitial nephritis, not specified as acute or chronic (principal); J45.909 Unspecified asthma, uncomplicated
CPT/HCPCS: 36415; 71045; 80048; 80076; 81001; 84703; 85025; 93005; 94640; 99285; J7512

== ENCOUNTER 2021-06-17 05:23 | Emergency (ER) | payer BC ==
[~2021-06-17] VITALS: Ht 167.6 cm; Wt 88.9 kg
[~2021-06-17 05:23] MED LIST: ONDA4TAB11 PO; SULF1TAB48 PO
--- NOTE | 2021-06-17 05:50 | NUR ---
BIBS. LOWER ABD PAIN X 8 DAYS. -N/V/D. PATIENT ALERT AND ORIENTED X3. AMBULATORY WITH NON LABORED BREATHING IN BED 10 AWAITING MD HENSON.
--- NOTE | 2021-06-17 05:55 | NUR ---
PT UNABLE TO GIVE URINE AT THIS TIME.
[2021-06-17 06:40] LABS: BASOPHILS # (AUTO) 0.2 K/uL (0.0-0.2); BASOPHILS % (AUTO) 0.8 % (0.0-2.0); EOSINOPHILS % (AUTO) 2.4 % (0.0-6.0); HEMATOCRIT 45 % (33-45); HEMOGLOBIN 14.6 g/dL (11.5-14.8); LYMPHOCYTES # (AUTO) 4.9 K/uL (0.8-4.8); LYMPHOCYTES % (AUTO) 22.5 % (20.0-44.0); MEAN CORPUSCULAR HGB CONC 33 g/dl (31.0-36.0); MEAN CORPUSCULAR VOLUME 91 fL (82-100); MONOCYTES # (AUTO) 0.9 K/uL (0.1-1.30); MONOCYTES % (AUTO) 4.2 % (2.0-12.0); NEUTROPHILS # (AUTO) 15.2 K/uL (1.8-8.9); NEUTROPHILS % (AUTO) 70.1 % (43.0-81.0); PLATELET COUNT (AUTO) 287 K/uL (150-450); RED BLOOD CELL COUNT(AUTO) 4.95 MIL/uL (4.0-5.2); WHITE BLOOD COUNT (AUTO) 21.7 K/uL (4.3-11.0)
[2021-06-17] MEDS ORDERED: ACETAMINOPHEN 325 MG TABLET PO ONE (07:00)
[2021-06-17] MEDS ORDERED: ACETAMINOPHEN 325 MG TABLET ONE (07:01)
--- NOTE | 2021-06-17 07:07 | NUR ---
URINE COLLECTED AND SENT TO LAB
[2021-06-17 07:13] LABS: ALBUMIN 3.9 g/dL (3.4-5.0); BILIRUBIN,DIRECT 0.1 mg/dL (0.0-0.2); BILIRUBIN,TOTAL 0.2 mg/dL (0.2-1.0); CREATININE 0.8 mg/dL (0.6-1.3); POTASSIUM 3.2 mmol/L (3.5-5.1); TOTAL PROTEIN, SERUM 8.1 g/dL (6.4-8.2)
[2021-06-17 07:58] LABS: BILIRUBIN,URINE NEGATIVE (NEGATIVE); COLOR,URINE RED (YELLOW); LEUKOCYTE ESTERASE ,URINE NEGATIVE (NEGATIVE); NITRITE, URINE NEGATIVE (NEGATIVE); PROTEIN,URINE 100 mg/dl (NEGATIVE); UGLUCOSE NEGATIVE (NEGATIVE); UROBILINOGEN,URINE 0.2 EU/dL (0.2)
[2021-06-17 08:24] LABS: BACTERIA,URINE None seen /HPF (None Seen); RBC,URINE >100 /HPF (0-2); SQUAMOUS EPITHELIAL CELL,UR Few /HPF (None Seen)
[2021-06-17] MEDS ORDERED: IBUP-1955 PO (08:35)
--- NOTE | 2021-06-17 08:37 | NUR ---
Patient discharged to home in stable condition. Written and verbal after care instructions given. Patient verbalizes understanding of instruction.
[2021-06-17 08:54] VITALS: BP 136/78
== END 2021-06-17 08:55 | disposition home or self-care (01) ==
LOC: ER 05:25
DX: N94.6 Dysmenorrhea, unspecified (principal); R10.9 Unspecified abdominal pain; N92.0 Excessive and frequent menstruation with regular cycle; J45.909 Unspecified asthma, uncomplicated; F20.9 Schizophrenia, unspecified; F17.200 Nicotine dependence, unspecified, uncomplicated; Z91.49 Other personal history of psychological trauma, not elsewhere classified; Z87.440 Personal history of urinary (tract) infections; Z79.899 Other long term (current) drug therapy
CPT/HCPCS: 36415; 76856-TC; 80048-TC; 80076-TC; 81001; 83690-TC; 84703-TC; 85025-TC

== ENCOUNTER 2021-06-26 12:05 | Emergency (ER) | payer BC ==
[~2021-06-26] VITALS: Ht 170.2 cm; Wt 90.7 kg
[~2021-06-26 12:05] MED LIST changes: +IBUP-1955 PO
[2021-06-26 12:16] VITALS: BP 123/78
--- NOTE | 2021-06-26 12:19 | NUR ---
DR HUERTA ASSESSING THE PATIENT.
--- NOTE | 2021-06-26 12:26 | NUR ---
Patient discharged to home in stable condition. Written and verbal after care instructions given. Patient verbalizes understanding of instruction.
== END 2021-06-26 12:27 | disposition home or self-care (01) ==
LOC: ER 12:12
DX: G47.9 Sleep disorder, unspecified (principal); F20.9 Schizophrenia, unspecified; J45.909 Unspecified asthma, uncomplicated; F17.200 Nicotine dependence, unspecified, uncomplicated; Z87.440 Personal history of urinary (tract) infections; Z79.1 Long term (current) use of non-steroidal anti-inflammatories (NSAID); Z79.899 Other long term (current) drug therapy

== ENCOUNTER 2021-12-28 09:14 | Emergency (ER) | payer BC ==
[~2021-12-28] VITALS: Ht 154.9 cm; Wt 83.0 kg
[2021-12-28] MEDS ORDERED: CEFTRIAXONE 1 G VIAL IM ONE (10:30)
[2021-12-28] MEDS ORDERED: LIDOCAINE /MPF 1% VIAL 5 ML VIAL ONE (10:30)
[2021-12-28] MEDS ORDERED: CEFTRIAXONE 1 G VIAL ONE (10:30)
--- NOTE | 2021-12-28 10:42 | NUR ---
COVID TEST COLLECTED AND SENT
[2021-12-28 11:06] LABS: BASOPHILS # (AUTO) 0.1 K/uL (0.0-0.2); BASOPHILS % (AUTO) 0.5 % (0.0-2.0); EOSINOPHILS % (AUTO) 1.4 % (0.0-6.0); HEMATOCRIT 49 % (33-45); HEMOGLOBIN 16.1 g/dL (11.5-14.8); LYMPHOCYTES # (AUTO) 3.6 K/uL (0.8-4.8); LYMPHOCYTES % (AUTO) 18.7 % (20.0-44.0); MEAN CORPUSCULAR HGB CONC 33 g/dl (31.0-36.0); MEAN CORPUSCULAR VOLUME 88 fL (82-100); MONOCYTES # (AUTO) 1.2 K/uL (0.1-1.30); MONOCYTES % (AUTO) 6.1 % (2.0-12.0); NEUTROPHILS % (AUTO) 73.3 % (43.0-81.0); PLATELET COUNT (AUTO) 250 K/uL (150-450); RED BLOOD CELL COUNT(AUTO) 5.58 MIL/uL (4.0-5.2); WHITE BLOOD COUNT (AUTO) 19.1 K/uL (4.3-11.0)
--- NOTE | 2021-12-28 11:06 | NUR ---
URINE SAMPLE COLLECTED AND SENT TO LAB
[2021-12-28 11:18] LABS: CALCIUM, SERUM 9.1 mg/dL (8.5-10.1); CARBON DIOXIDE 26 mmol/L (21-32); CHLORIDE 104 mmol/L (98-107); GLUCOSE 82 mg/dL (74-106); POTASSIUM 4.2 mmol/L (3.5-5.1); SODIUM SERUM 136 mmol/L (136-145); UREA NITROGEN, BLOOD 17 mg/dL (7-18)
[2021-12-28 11:24] LABS: ALANINE AMINOTRANSFERASE 35 U/L (12-78); ALBUMIN 3.9 g/dL (3.4-5.0); ALCOHOL, BLOOD < 3 mg/dL (0-0); ALKALINE PHOSPHATASE 102 U/L (46-116); ASPARTATE AMINOTRANSFERASE 22 U/L (15-37); BILIRUBIN,DIRECT 0.1 mg/dL (0.0-0.2); BILIRUBIN,TOTAL 0.4 mg/dL (0.2-1.0); TOTAL PROTEIN, SERUM 8.4 g/dL (6.4-8.2)
[2021-12-28 11:24] LABS: BILIRUBIN,URINE SMALL (NEGATIVE); COLOR,URINE ORANGE (YELLOW); LEUKOCYTE ESTERASE ,URINE TRACE (NEGATIVE); NITRITE, URINE NEGATIVE (NEGATIVE); PH,URINE 5.5 (5.0-8.0); PROTEIN,URINE 30 mg/dl (NEGATIVE); UGLUCOSE NEGATIVE (NEGATIVE); UROBILINOGEN,URINE 0.2 EU/dL (0.2)
[2021-12-28 11:25] LABS: ACETAMINOPHEN < 10 ug/ml (10-30)
[2021-12-28 11:40] LABS: BACTERIA,URINE Moderate /HPF (None Seen); RBC,URINE 0-2 /HPF (0-2); SQUAMOUS EPITHELIAL CELL,UR Moderate /HPF (None Seen)
[2021-12-28] MEDS ORDERED: DOXY100C2 PO (13:35)
--- NOTE | 2021-12-28 14:25 | NUR ---
Supervisor Cutting Department Consult JANN received a consult request for homeless resources. SW attempted to conduct assessment but pt. was asleep and unresponsive. JANN then discussed with nurse who then informed JANN that pt. had left the hospital AMA. JANN informed Dr. Phipps that pt. left AMA.
--- NOTE | 2021-12-28 14:30 | NUR ---
PT SIGNED AGAINST MEDICAL ADVICE, REFUSED PELVIC EXAM, DID NOT WANT TO CONTINUE CARE. AWARE.
[2021-12-28 18:58] VITALS: BP 133/87
== END 2021-12-28 14:20 | disposition left against medical advice (07) ==
LOC: ER 09:17
DX: F29 Unspecified psychosis not due to a substance or known physiological condition (principal); F20.9 Schizophrenia, unspecified; Z11.3 Encounter for screening for infections with a predominantly sexual mode of transmission; Z87.440 Personal history of urinary (tract) infections; J45.909 Unspecified asthma, uncomplicated; Z20.822 Contact with and (suspected) exposure to COVID-19; Z53.29 Procedure and treatment not carried out because of patient's decision for other reasons; R82.5 Elevated urine levels of drugs, medicaments and biological substances
CPT/HCPCS: 99285; 96372; 85025; 80048; 87086; 80076; 84703; 81001; 36415; 87426; 80143; 80320; 80307; 87491; 87591; J0696; J3490; C9803; G0480

== ENCOUNTER 2022-03-10 16:35 | Emergency (ER) | payer BC ==
[~2022-03-10] VITALS: Ht 167.6 cm; Wt 81.6 kg
[~2022-03-10 16:35] MED LIST changes: +DOXY100C2 PO
--- NOTE | 2022-03-10 17:00 | NUR ---
RECEVED PT 37 YRS MALE BY PARMDIC C/O PAIN ON LT ANKLE WITH LT ANKLE AIR SPLENT
--- NOTE | 2022-03-10 18:00 | NUR ---
X RAY DONE AT BED SIDE
[2022-03-10] MEDS ORDERED: ACETAMINOPHEN ES 500 MG TABLET PO ONE (18:30)
--- NOTE | 2022-03-10 19:39 | NUR ---
HAND OFF RIANNA PERSAUD
[2022-03-10] MEDS ORDERED: MORPHINE SULFATE INJ 2 MG/ML DISP.SYRIN ONE ×2 (20:26→22:04)
[2022-03-10] MEDS ORDERED: MORPHINE SULFATE INJ 2 MG/ML DISP.SYRIN IV ONE ×2 (20:30→22:00)
[2022-03-10 20:43] LABS: ALBUMIN 3.4 g/dL (3.4-5.0); BILIRUBIN,DIRECT 0.1 mg/dL (0.0-0.2); BILIRUBIN,TOTAL 0.2 mg/dL (0.2-1.0); CALCIUM, SERUM 8.4 mg/dL (8.5-10.1); CREATININE 0.9 mg/dL (0.6-1.3); POTASSIUM 3.2 mmol/L (3.5-5.1); TOTAL PROTEIN, SERUM 7.6 g/dL (6.4-8.2)
[2022-03-10 20:45] LABS: BASOPHILS # (AUTO) 0.1 K/uL (0.0-0.2); BASOPHILS % (AUTO) 0.4 % (0.0-2.0); EOSINOPHILS % (AUTO) 0.4 % (0.0-6.0); HEMATOCRIT 41 % (33-45); HEMOGLOBIN 13.4 g/dL (11.5-14.8); LYMPHOCYTES # (AUTO) 3.1 K/uL (0.8-4.8); LYMPHOCYTES % (AUTO) 17.4 % (20.0-44.0); MEAN CORPUSCULAR HGB CONC 33 g/dl (31.0-36.0); MEAN CORPUSCULAR VOLUME 88 fL (82-100); MONOCYTES # (AUTO) 0.7 K/uL (0.1-1.30); MONOCYTES % (AUTO) 3.7 % (2.0-12.0); NEUTROPHILS % (AUTO) 78.1 % (43.0-81.0); PLATELET COUNT (AUTO) 294 K/uL (150-450); RED BLOOD CELL COUNT(AUTO) 4.64 MIL/uL (4.0-5.2); WHITE BLOOD COUNT (AUTO) 17.9 K/uL (4.3-11.0)
[2022-03-10] MEDS ORDERED: POTASSIUM CL. PREMIX PERIPHER. 100 ML ONE (21:15)
[2022-03-10] MEDS: POTASSIUM CL. PREMIX PERIPHER. 50 ML IV SCH ×2 (21:32→22:41)
--- NOTE | 2022-03-10 21:55 | NUR ---
DR CABRERA ON THE PHONE WITH DR GUIDO AT [facility]
[2022-03-10] MEDS ORDERED: LORAZEPAM INJ 2 MG/ML VIAL IV ONE (22:00)
[2022-03-10] MEDS ORDERED: LORAZEPAM INJ 2 MG/ML VIAL ONE (22:05)
[2022-03-11] MEDS: POTASSIUM CL. PREMIX PERIPHER. 50 ML IV SCH ×2 (00:12→01:58)
--- NOTE | 2022-03-11 00:16 | NUR ---
PT GOT ACEPTED AT [facility] UNDER CAARE OF DR GUIDO. GOING TO RM [id number]. S TRANSPORTATION BY [facility]. ETA: ONE HOUR. AUTH NUMBER FOR TRANSPORTATION: [id number]. # FOR REPORT: [phone]
--- NOTE | 2022-03-11 00:32 | NUR ---
ATTEMPTED TO CALL THE NUMBERS ON FILE TO INFORM THE RESPONSIBLE LIBERTARIAN REGARDING PT'S TRANSFER. NO ANSWER
--- NOTE | 2022-03-11 00:43 | NUR ---
REPORT GIVEN TO DAR SHOEMAKER RN FOR DESMOND
[2022-03-11] MEDS ORDERED: POTASSIUM CL. PREMIX PERIPHER. 50 ML ONE (01:56)
[2022-03-11 02:22] VITALS: BP 128/67
--- NOTE | 2022-03-11 02:24 | NUR ---
[facility] AT BED SIDE TO RELAY SHOP TESTER THE PT
== END 2022-03-11 02:53 | disposition short-term general hospital (02) ==
LOC: ER 16:45
DX: S82.392A Other fracture of lower end of left tibia, initial encounter for closed fracture (principal); W01.0XXA Fall on same level from slipping, tripping and stumbling without subsequent striking against object, initial encounter; Y92.89 Other specified places as the place of occurrence of the external cause; Z20.822 Contact with and (suspected) exposure to COVID-19; J45.909 Unspecified asthma, uncomplicated; F20.9 Schizophrenia, unspecified; Z87.440 Personal history of urinary (tract) infections
CPT/HCPCS: 27825; 99285; 96365; 96366 ×2; 96375; 73610; 85025; 80048; 80076; 36415; 85730; 87426; J2060; J7040 ×2; J3480 ×2; J2270 ×2; C9803

== ENCOUNTER 2022-06-17 00:18 | Emergency (ER) | payer BC ==
[~2022-06-17] VITALS: Ht 162.6 cm; Wt 86.2 kg
[2022-06-17 01:01] VITALS: BP 138/88
--- NOTE | 2022-06-17 01:01 | NUR ---
BIBSELF C/O LOOKING FOR "CURE" AND WANTS TO SLEEP. PT HAS DISORGANIZED THOUGHTS. TOLERATING R/A WELL WITH NO RESP DISTRESS.
--- NOTE | 2022-06-17 01:43 | NUR ---
PT WAS SLEEPING. DR PALMER NOT ABLE TO ASSESS PT.
--- NOTE | 2022-06-17 02:00 | NUR ---
PT LEFT BEFORE BEING SEEN BY MD.
== END 2022-06-17 05:04 | disposition left against medical advice (07) ==
LOC: ER 00:21
DX: R41.0 Disorientation, unspecified (principal); Z53.21 Procedure and treatment not carried out due to patient leaving prior to being seen by health care provider

== ENCOUNTER 2022-06-17 22:00 | Emergency (ER) | payer BC ==
[~2022-06-17] VITALS: Ht 167.6 cm; Wt 81.6 kg
--- NOTE | 2022-06-17 23:34 | NUR ---
BUCKLE GLUER AT PT'S BEDSIDE
[2022-06-17 23:48] LABS: BASOPHILS # (AUTO) 0.2 K/uL (0.0-0.2); EOSINOPHILS % (AUTO) 2.4 % (0.0-6.0); HEMATOCRIT 37 % (33-45); LYMPHOCYTES # (AUTO) 5.1 K/uL (0.8-4.8); LYMPHOCYTES % (AUTO) 31.9 % (20.0-44.0); MEAN CORPUSCULAR HGB CONC 32 g/dl (31.0-36.0); MEAN CORPUSCULAR VOLUME 87 fL (82-100); MONOCYTES # (AUTO) 0.9 K/uL (0.1-1.30); MONOCYTES % (AUTO) 5.4 % (2.0-12.0); NEUTROPHILS # (AUTO) 9.5 K/uL (1.8-8.9); NEUTROPHILS % (AUTO) 59.3 % (43.0-81.0); PLATELET COUNT (AUTO) 301 K/uL (150-450)
--- NOTE | 2022-06-18 | NUR ---
DAISY AND [employer] TO ER BED 18. AAOX3. NOT IN RESP DISTRESS. PT WAS BROUGHT IN BECAUSE SHE WAS CAUGHT TRESPASSING. PT DENIES SI NOR HI. PT SEEKING VOLUNRTARY ADMISSION. PT WAS REPORTED THAT SHE LEFT HER FACILITY AND DOES NOT WANT TO COME BACK. PT IN GOWN, BELONGINGS TAKEN.
--- NOTE | 2022-06-18 00:02 | NUR ---
COVID ANTIGEN AND URINE SAMPLE COLLECTED AND SENT TO LAB
[2022-06-18 00:17] LABS: CALCIUM, SERUM 8.4 mg/dL (8.5-10.1); CARBON DIOXIDE 23 mmol/L (21-32); CHLORIDE 104 mmol/L (98-107); CREATININE 0.9 mg/dL (0.6-1.3); GLUCOSE 114 mg/dL (74-106); POTASSIUM 3.8 mmol/L (3.5-5.1); SODIUM SERUM 137 mmol/L (136-145); UREA NITROGEN, BLOOD 13 mg/dL (7-18)
[2022-06-18 00:28] LABS: ALANINE AMINOTRANSFERASE 19 U/L (12-78); ALBUMIN 3.2 g/dL (3.4-5.0); ALCOHOL, BLOOD < 3 mg/dL (0-0); ALKALINE PHOSPHATASE 142 U/L (46-116); ASPARTATE AMINOTRANSFERASE 13 U/L (15-37); BILIRUBIN,DIRECT 0.1 mg/dL (0.0-0.2); BILIRUBIN,TOTAL 0.2 mg/dL (0.2-1.0); TOTAL PROTEIN, SERUM 6.7 g/dL (6.4-8.2)
[2022-06-18 01:05] LABS: BILIRUBIN,URINE NEGATIVE (NEGATIVE); COLOR,URINE OTHER (YELLOW); LEUKOCYTE ESTERASE ,URINE NEGATIVE (NEGATIVE); NITRITE, URINE NEGATIVE (NEGATIVE); PROTEIN,URINE NEGATIVE (NEGATIVE); UGLUCOSE NEGATIVE (NEGATIVE); UROBILINOGEN,URINE 0.2 EU/dL (0.2)
--- NOTE | 2022-06-18 07:03 | NUR ---
CLINICALS FAXED TO [facility].
--- NOTE | 2022-06-18 07:06 | NUR ---
ACCEPTED TO [facility]
--- NOTE | 2022-06-18 07:23 | NUR ---
ASSISTANT PRODUCT MANAGER @ [phone]
--- NOTE | 2022-06-18 08:49 | NUR ---
TRANSPORT HERE FOR PICKUP
--- NOTE | 2022-06-18 09:16 | NUR ---
CHARLEEN BY TRANSPORT GOING TO [facility]
[2022-06-18 09:18] VITALS: BP 121/79
== END 2022-06-18 09:18 ==
LOC: ER 22:11
DX: F29 Unspecified psychosis not due to a substance or known physiological condition (principal); J45.909 Unspecified asthma, uncomplicated; F20.9 Schizophrenia, unspecified; F32.A Depression, unspecified; F17.200 Nicotine dependence, unspecified, uncomplicated; Z79.899 Other long term (current) drug therapy; Z20.822 Contact with and (suspected) exposure to COVID-19
CPT/HCPCS: 99285; 85025; 80048; 80076; 36415; 80143; 80320; 80307; 84703; 81003; 87426; C9803; G0480